=== PATIENT | female | born 1980 | race American Indian/Alaskan Native ===

== ENCOUNTER 2017-04-10 00:39 | Emergency (ER) | payer MEDICAID, OTHER ==
[2017-04-10 03:10] LABS: Alanine Aminotransferase 12 units/L (7-56); Albumin 4.7 g/dL (3.9-5); Albumin/Globulin Ratio 1.7 %; Alkaline Phosphatase 54 units/L (35-129); Anion Gap 21 mmol/L; BUN/Creatinine Ratio 15; Blood Urea Nitrogen 9 mg/dL (7-17); Calcium 9.1 mg/dL (8.4-10.2); Carbon Dioxide 22 mmol/L (22-30); Chloride 94.8 mmol/L (98-107); Glucose 97 mg/dL (65-100); Potassium 3.9 mmol/L (3.6-5.0); Sodium 134 mmol/L (137-145); Total Protein 7.5 g/dL (6.3-8.2)
[2017-04-10 03:14] LABS: Basophils % (Auto) 0.6 % (0.0-1.8); Hematocrit 40.4 % (30.3-42.9); Hemoglobin 13.5 gm/dl (10.1-14.3); Mean Corpuscular HGB Conc 34 % (30-34); Mean Corpuscular Hemoglobin 28 pg (28-32); Mean Corpuscular Volume 85 fl (79-97); Platelet Count 256 K/mm3 (140-440); Red Blood Count 4.77 M/mm3 (3.65-5.03); Red Cell Distribution Width 14.1 % (13.2-15.2); White Blood Count 6.6 K/mm3 (4.5-11.0)
[2017-04-10 03:43] LABS: Bilirubin,Urine NEG (Negative); Blood,Urine NEG (Negative); Ketones,Urine TR mg/dL (Negative); Leukocyte Esterase,Urine NEG (Negative); Mucus,Urine FEW /HPF; Nitrite,Urine NEG (Negative); Urobilinogen,Urine < 2.0 mg/dL (<2.0); WBC,Urine < 1.0 /HPF (0.0-6.0)
[2017-04-10] MEDS ORDERED: ZOFRAN ONE (07:42)
[2017-04-10] MEDS ORDERED: ZOFRAN IV ONE ×2 (07:49→08:56)
--- NOTE | 2017-04-10 08:50 | Emergency Department Report ---
HPI - General Chief Complaint: Abdominal Pain Time Seen by Provider: 04/10/17 08:38 - HPI HPI: Room 3 The patient is a 37-year-old female presenting with a chief complaint of abdominal pain nausea vomiting. Patient states at 18:00 last night she developed intractable nausea and vomiting. Patient states she developed pain at the umbilicus which is been constant in nature. Patient denies fever, diarrhea, dysuria, hematuria or vaginal discharge. Patient states her life cycle occurred 04/02/2017 was within normal limits. The patient currently gives her pain a score of 7/10 Location: Abdomen Duration: Constant since 18:00 last night Quality: Pain Severity: 7/10 Modifying factors: [see above] Context: [see above] Mode of transportation: Unknown ED Past Medical Hx - Past Medical History Previous Medical History?: No Additional medical history: denies - Surgical History Past Surgical History?: No Additional Surgical History: Bilateral tubal ligation - Family History Family history: no significant - Social History Smoking Status: Current Every Day Smoker (5-6 cigarettes daily) Substance Use Type: None (denies illicit drug use), Alcohol (occasional) - Medications Home Medications: Home Medications Medication Instructions Recorded Confirmed Last Taken Type Acetaminophen/Codeine 1 tab PO Q6H PRN #10 tab 06/24/14 Unknown Rx [Acetaminophen-Codeine #3 TAB] Cyclobenzaprine [Flexeril 10mg] 10 mg PO BID PRN #10 tablet 06/24/14 Unknown Rx Ibuprofen [Motrin 600 MG tab] 600 mg PO Q8H PRN #20 tablet 06/24/14 Unknown Rx Prednisone [Prednisone 5 mg (6-Day 5 mg PO .TAPER #1 tab.ds.pk 06/24/14 Unknown Rx Pack, 21 Tabs)] Azithromycin [Zithromax Z-REAL] 0 mg PO DAILY #6 tab 04/10/17 Unknown Rx traMADol [Ultram] 50 mg PO Q6HR PRN #14 tablet 04/10/17 Unknown Rx ED Review of Systems ROS: Stated complaint: BODY ACHES W N/V Other details as noted in HPI Comment: All other systems reviewed and negative Constitutional: denies: chills, fever Eyes: denies: eye pain, eye discharge, vision change ENT: denies: ear pain, throat pain Respiratory: denies: cough, shortness of breath, wheezing Cardiovascular: denies: chest pain, palpitations Endocrine: no symptoms reported Gastrointestinal: abdominal pain, nausea, vomiting. denies: diarrhea Genitourinary: denies: urgency, dysuria, discharge, abnormal menses Musculoskeletal: denies: back pain, joint swelling, arthralgia Skin: denies: rash, lesions Neurological: denies: headache, weakness, paresthesias Psychiatric: denies: anxiety, depression Hematological/Lymphatic: denies: easy bleeding, easy bruising Physical Exam - Physical Exam Vital Signs: Vital Signs 04/10/17 04/10/17 04/10/17 01:58 05:12 05:15 Temperature 98.3 F Pulse Rate 86 Respiratory 18 Rate Blood Pressure 157/106 128/85 127/100 Blood Pressure [Left] O2 Sat by Pulse 99 Oximetry 04/10/17 04/10/17 04/10/17 05:18 05:31 07:25 Temperature 98.5 F 98.5 F Pulse Rate 80 90 Respiratory 16 16 Rate Blood Pressure 147/96 Blood Pressure 128/85 145/106 [Left] O2 Sat by Pulse 99 Oximetry Physical Exam: GENERAL: The patient is well-developed well-nourished female lying on stretcher not appearing to be in acute distress. [] HEENT: Normocephalic. Atraumatic. Extraocular motions are intact. Patient has moist mucous membranes. NECK: Supple. Trachea midline CHEST/LUNGS: Clear to auscultation. There is no respiratory distress noted. HEART/CARDIOVASCULAR: Regular. There is no tachycardia. There is no gallop rub or murmur. ABDOMEN: Abdomen is soft, with a discomfort to palpation in the left lower quadrant, suprapubic region. There is no rebound or guarding. Patient has normal bowel sounds. There is no abdominal distention. SKIN: There is no rash. There is no edema. There is no diaphoresis. NEURO: The patient is awake, alert, and oriented. The patient is cooperative. The patient has normal speech MUSCULOSKELETAL: There is no CVA tenderness. There is no evidence of acute injury. ED Course Vital Signs 04/10/17 04/10/17 04/10/17 01:58 05:12 05:15 Temperature 98.3 F Pulse Rate 86 Respiratory 18 Rate Blood Pressure 157/106 128/85 127/100 Blood Pressure [Left] O2 Sat by Pulse 99 Oximetry 04/10/17 04/10/1704/10/17 05:18 05:31 07:25 Temperature 98.5 F 98.5 F Pulse Rate 80 90 Respiratory 16 16 Rate Blood Pressure 147/96 Blood Pressure 128/85 145/106 [Left] O2 Sat by Pulse 99 Oximetry - Reevaluation(s) Reevaluation #1: 04/10/17 11:22 CT results discussed with patient. Patient admits she is had a cough productive of green sputum for approximately 3 days. Will initiate azithromycin ED Medical Decision Making - Lab Data Result diagrams: 04/10/17 02:28 04/10/17 02:28 Laboratory Tests 04/10/17 04/10/17 04/10/17 02:28 02:28 02:28 WBC 6.6 RBC 4.77 Hgb 13.5 Hct 40.4 MCV 85 MCH 28 MCHC 34 RDW 14.1 Plt Count 256 Lymph % (Auto) 9.0 L [place] % (Auto) 3.5 Eos % (Auto) 0.0 Baso % (Auto) 0.6 Lymph # 0.6 L [place] # 0.2 Eos # 0.0 Baso # 0.0 Seg Neutrophils % 86.9 H Seg Neutrophils # 5.8 Sodium 134 L Potassium 3.9 Chloride 94.8 L Carbon Dioxide 22 Anion Gap 21 BUN 9 Creatinine 0.6 L Estimated GFR > 60 BUN/Creatinine Ratio 15 Glucose 97 Calcium 9.1 Total Bilirubin 0.30 AST 21 ALT 12 Alkaline Phosphatase 54 Total Protein 7.5 Albumin 4.7 Albumin/Globulin Ratio 1.7 Lipase 13 Urine Color Urine Turbidity Urine pH Ur Specific [place] Urine Protein Urine Glucose (UA) Urine Ketones Urine Blood Urine Nitrite Urine Bilirubin Urine Urobilinogen Ur Leukocyte Esterase Urine WBC (Auto) Urine RBC (Auto) U Epithel Cells (Auto) Urine Mucus Urine HCG, Qual 04/10/17 04/10/17 03:22 08:38 WBC RBC Hgb Hct MCV MCH MCHC RDW Plt Count Lymph % (Auto) [place] % (Auto) Eos % (Auto) Baso % (Auto) Lymph # [place] # Eos # Baso # Seg Neutrophils % Seg Neutrophils # Sodium Potassium Chloride Carbon Dioxide Anion Gap BUN Creatinine Estimated GFR BUN/Creatinine Ratio Glucose Calcium Total Bilirubin AST ALT Alkaline Phosphatase Total Protein Albumin Albumin/Globulin Ratio Lipase Urine Color Yellow Urine Turbidity Clear Urine pH 7.0 Ur Specific [place] 1.023 Urine Protein 30 mg/dl Urine Glucose (UA) Neg Urine Ketones Tr Urine Blood Neg Urine Nitrite Neg Urine Bilirubin Neg Urine Urobilinogen < 2.0 Ur Leukocyte Esterase Neg Urine WBC (Auto) < 1.0 Urine RBC (Auto) 4.0 U Epithel Cells (Auto) 5.0 Urine Mucus Few Urine HCG, Qual Negative - Radiology Data Radiology results: report reviewed (CT abdomen and pelvis), image reviewed (CT abdomen and pelvis) CT SCAN OF THE ABDOMEN AND PELVIS WITH CONTRAST: HISTORY: Periumbilical pain, left lower quadrant abdominal pain, intractable nausea and vomiting. TECHNIQUE: Helical CT in 1.25mm intervals following IV contrast. Sagittal and coronal reconstructions. FINDINGS: There is patchy airspace density within the medial left lower lobe which is partially imaged. Left lower lobe pneumonia cannot be excluded. The visualized right lung base is well aerated. Normal heart size. The liver is normal in size and is without focal defect. No gallstones or biliary dilatation are noted. The spleen is normal size and contour. 2.4 cm splenic hemangiomas noted. The pancreatic tissue is within normal limits. The kidneys are normal in size and position with no evidence of hydronephrosis or mass. The adrenal glands are normal. There is no intestinal obstruction or ascites. Normal appendix. The abdominal aorta is normal. 2.2 cm simple cyst in the right ovary is identified. The uterus and left adnexa are within normal limits. Bilateral Essure devices are noted. There is trace pelvic ascites. There are multiple fluid density cystic structures within the left side of the mesentery which filled the lesser sac. One of the larger cystic structures measure 2.7 x 6.3 cm in axial plane. This does not have the appearance of an abscess or mass. I suspect these may be lymphatic in origin. Correlation with previous CTs would be helpful if available. No bulky adenopathy, abscess or free air. No bony lesion is appreciated. IMPRESSION: Partially imaged airspace opacity in the left lower lobe. Correlate for left lung pneumonia. 2.2 cm right ovarian cyst. Trace pelvic ascites. 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 I suspect these may be congenital in nature. They do not have the typical appearance of a neoplastic process or inflammatory process. Transcribed By: TTR Dictated By: ANDRES CHAVIS JR, MD Electronically Authenticated By: ANDRES CHAVIS JR, MD Signed Date/Time: 04/10/17 1110 DD/ 1104 TD/TT: 04/10/17 1110 - Differential Diagnosis ectopic , diverticulitis, small bowel obstruction, gastritis Critical care attestation.: If time is entered above; I have spent that time in minutes in the direct care of this critically ill patient, excluding procedure time. ED Disposition Clinical Impression: Pneumonia, Abdominal pain Disposition: - TO HOME OR SELFCARE Is pt being admited?: No Does the pt Need Aspirin: No Condition: Stable Instructions: Abdominal Pain (ED), Bacterial Pneumonia (ED) Additional Instructions: Return to the emergency department immediately should you develop worsening symptoms, fever, inability to tolerate food or liquid or any other concerns. Prescriptions: Azithromycin [Zithromax Z-REAL] 0 mg PO DAILY #6 tab traMADol [Ultram] 50 mg PO Q6HR PRN #14 tablet PRN Reason: Pain Referrals: [facility] [Provider Group] - 3-5 Days Time of Disposition: 11:22
[2017-04-10] MEDS ORDERED: NACL 0.9% 1000 ML 1,000 ML IV ONE (08:56)
[2017-04-10] MEDS ORDERED: SUBLIMAZE IV ONE (08:56)
[2017-04-10] MEDS ORDERED: NACL ONE (09:51)
[2017-04-10 10:27] VITALS: BP 123/83
--- NOTE | 2017-04-10 11:14 | Cat Scan Report ---
CT SCAN OF THE ABDOMEN AND PELVIS WITH CONTRAST: HISTORY: Periumbilical pain, left lower quadrant abdominal pain, intractable nausea and vomiting. TECHNIQUE: Helical CT in 1.25mm intervals following IV contrast. Sagittal and coronal reconstructions. FINDINGS: There is patchy airspace density within the medial left lower lobe which is partially imaged. Left lower lobe pneumonia cannot be excluded. The visualized right lung base is well aerated. Normal heart size. The liver is normal in size and is without focal defect. No gallstones or biliary dilatation are noted. The spleen is normal size and contour. 2.4 cm splenic hemangiomas noted. The pancreatic tissue is within normal limits. The kidneys are normal in size and position with no evidence of hydronephrosis or mass. The adrenal glands are normal. There is no intestinal obstruction or ascites. Normal appendix. The abdominal aorta is normal. 2.2 cm simple cyst in the right ovary is identified. The uterus and left adnexa are within normal limits. Bilateral Essure devices are noted. There is trace pelvic ascites. There are multiple fluid density cystic structures within the left side of the mesentery which filled the lesser sac. One of the larger cystic structures measure 2.7 x 6.3 cm in axial plane. This does not have the appearance of an abscess or mass. I suspect these may be lymphatic in origin. Correlation with previous CTs would be helpful if available. No bulky adenopathy, abscess or free air. No bony lesion is appreciated. IMPRESSION: Partially imaged airspace opacity in the left lower lobe. Correlate for left lung pneumonia. 2.2 cm right ovarian cyst. Trace pelvic ascites. 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 I suspect these may be congenital in nature. They do not have the typical appearance of a neoplastic process or inflammatory process.
== END 2017-04-10 11:26 | disposition home or self-care (01) ==
LOC: ED 00:39
DX: J18.9 Pneumonia, unspecified organism (principal); R10.32 Left lower quadrant pain; F17.210 Nicotine dependence, cigarettes, uncomplicated; Z98.51 Tubal ligation status
CPT/HCPCS: 36415; 74177; 80053; 81001; 81025; 83690; 85025; 96361; 96374; 96375; 96376; 99284; J2405; J3010; J7030; Q9967

== ENCOUNTER 2017-08-19 13:36 | Emergency (ER) | payer OTHER ==
[2017-08-19 14:12] VITALS: BP 155/109
[2017-08-19] MEDS ORDERED: FLEXERIL PO ONE (16:53)
[2017-08-19] MEDS ORDERED: MOTRIN PO ONE (16:53)
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
[2017-08-19] MEDS ORDERED: TYLENOL #3 PO ONE (16:58)
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
== END 2017-08-19 18:18 | disposition home or self-care (01) ==
LOC: ED 13:36
DX: M79.1 Myalgia (principal); V89.2XXA Person injured in unspecified motor-vehicle accident, traffic, initial encounter; F17.200 Nicotine dependence, unspecified, uncomplicated; Z98.51 Tubal ligation status
CPT/HCPCS: 72040; 99283

== ENCOUNTER 2017-09-11 06:53 | Emergency (ER) | payer OTHER ==
[2017-09-11] MEDS ORDERED: ZOFRAN ODT PO ONE (07:19)
[2017-09-11 07:44] VITALS: BP 152/95
[2017-09-11 07:44] LABS: Basophils % (Auto) 0.3 % (0.0-1.8); Hematocrit 41.6 % (30.3-42.9); Hemoglobin 14.1 gm/dl (10.1-14.3); Lymphocytes # (Auto) 0.7 K/mm3 (1.2-5.4); Lymphocytes % (Auto) 9.8 % (13.4-35.0); Mean Corpuscular HGB Conc 34 % (30-34); Mean Corpuscular Hemoglobin 28 pg (28-32); Mean Corpuscular Volume 84 fl (79-97); Monocytes # (Auto) 0.2 K/mm3 (0.0-0.8); Monocytes % (Auto) 2.7 % (0.0-7.3); Platelet Count 292 K/mm3 (140-440); Red Blood Count 4.96 M/mm3 (3.65-5.03); Red Cell Distribution Width 14.1 % (13.2-15.2)
[2017-09-11 07:55] LABS: Alanine Aminotransferase 11 units/L (7-56); Albumin 4.8 g/dL (3.9-5); BUN/Creatinine Ratio 10; Blood Urea Nitrogen 7 mg/dL (7-17); Hemolysis Index 6
[2017-09-11] MEDS ORDERED: NACL 0.9% 1000 ML 1,000 ML ONE (08:00)
[2017-09-11] MEDS ORDERED: ZOFRAN ONE (08:00)
[2017-09-11] MEDS ORDERED: ZOFRAN IV ONE ×2 (08:09→14:51)
[2017-09-11] MEDS ORDERED: NACL 0.9% 1000 ML 1,000 ML IV ONE (08:09)
--- NOTE | 2017-09-11 10:23 | Ultrasound Report ---
TRANSABDOMINAL AND TRANSVAGINAL PELVIC ULTRASOUND: 09/11/17 06:53:00 CLINICAL: Pelvic pain. FINDINGS: Transabdominal and transvaginal pelvic ultrasound demonstrated a normal uterus measuring 8.3 x 4.3 x 5.8 cm. Normal uterine contour and echogenicity. No uterine fibroid or mass identified.The endometrium is normal and measures 6.5 AP thickness. A single ovary was identified at the uterine fundus and it measures 2.8 x 2.2 x 1.9 cm. The ovary contains a single follicle measuring 1.6 x 1.4 x 1.5 cm. A second ovary was not identified. No adnexal mass. No free fluid. Normal urinary bladder. IMPRESSION: 1. Normal uterus. 2. A single normal ovary identified at the uterine fundus. Without imaging of a second ovary, it is impossible determine whether this is a right ovary or a left ovary. 3. No explanation for pelvic pain.
[2017-09-11 10:29] LABS: Bilirubin,Urine NEG (Negative); Blood,Urine NEG (Negative); Color,Urine Yellow (Yellow); Mucus,Urine FEW /HPF; Protein,Urine <15 mg/dL mg/dL (Negative); Urobilinogen,Urine < 2.0 mg/dL (<2.0)
[2017-09-11] MEDS ORDERED: TORADOL IV ONE (14:51)
--- NOTE | 2017-09-11 14:55 | Emergency Department Report ---
Vomiting/Diarrhea - HPI Chief Complaint: Abdominal Pain Stated Complaint: FREQUENT VOMITING Time Seen by Provider: 09/11/17 14:24 Duration: 1 Day Severity: mild Nausea/Vomiting Severity: Mild Diarrhea Severity: Moderate Pain Location: Periumbilical Pain Severity: Mild Symptoms: Yes Able to Tolerate Fluids, Yes Recent Unusual Foods (estonian food), No Watery Diarrhea, No Bloody diarrhea, No Fever, No Recent Untreated Water, No Recent use of Antibiotics, No Family w/ Similar Symptoms, No Contacts w/ Similar Symptoms, No Rash, No Hematuria, No Recent URI Symptoms Other History: Patient is a 37-year-old female presents to ED complaining of periumbilical abdominal pain and nausea vomiting that started around 3 AM this morning. Patient states symptoms started from sleep. Patient states that yesterday afternoon she had some [place] food. Patient states that pain is localized to the umbilical region and nonradiating elsewhere his vaginal bleed, dysuria,, chills chest pain or shortness of breath ED Review of Systems ROS: Stated complaint: FREQUENT VOMITING Other details as noted in HPI Constitutional: denies: chills, fever Eyes: denies: eye pain, eye discharge, vision change ENT: denies: ear pain, throat pain Respiratory: denies: cough, shortness of breath, wheezing Cardiovascular: denies: chest pain, palpitations Endocrine: no symptoms reported Gastrointestinal: denies: abdominal pain, nausea, diarrhea Genitourinary: denies: urgency, dysuria, discharge Musculoskeletal: denies: back pain, joint swelling, arthralgia Skin: denies: rash, lesions Neurological: denies: headache, weakness, paresthesias Psychiatric: denies: anxiety, depression Hematological/Lymphatic: denies: easy bleeding, easy bruising ED Past Medical Hx - Past Medical History Previous Medical History?: No Additional medical history: denies - Surgical History Past Surgical History?: No Additional Surgical History: Bilateral tubal ligation - Social History Smoking Status: Current Every Day Smoker Substance Use Type: None - Medications Home Medications: Home Medications Medication Instructions Recorded Confirmed Last Taken Type Acetaminophen/Codeine 1 tab PO Q6H PRN #10 tab 06/24/14 Unknown Rx [Acetaminophen-Codeine #3 TAB] Cyclobenzaprine [Flexeril 10mg] 10 mg PO BID PRN #10 tablet 06/24/14 Unknown Rx Ibuprofen [Motrin 600 MG tab] 600 mg PO Q8H PRN #20 tablet 06/24/14 Unknown Rx Prednisone [Prednisone 5 mg (6-Day 5 mg PO .TAPER #1 tab.ds.pk 06/24/14 Unknown Rx Pack, 21 Tabs)] Azithromycin [Zithromax Z-REAL] 0 mg PO DAILY #6 tab 04/10/17 Unknown Rx traMADol [Ultram] 50 mg PO Q6HR PRN #14 tablet 04/10/17 Unknown Rx Cyclobenzaprine [Flexeril] 10 mg PO TID PRN #12 tablet 08/19/17 Unknown Rx Ibuprofen [Motrin] 800 mg PO Q8HR PRN #20 tablet 08/19/17 Unknown Rx Famotidine [Pepcid] 20 mg PO BID #30 tablet 09/11/17 Unknown Rx Ondansetron [Zofran Odt] 4 mg PO TID #20 tab.rapdis 09/11/17 Unknown Rx Vomiting Diarrhea Exam - Exam General: Vital signs noted. No distress. Alert and acting appropriately. HEENT: Yes Moist Mucous Membranes, No Pharyngeal Erythema, No Pharyngeal Exudates, No Rhinorrhea, No Conjuctival Injection, No Frontal Tenderness, No Maxillary Tenderness Neck: No Adenopathy, No Rigidity Lungs: Yes Clear Lung Sounds, Yes Good Air Exchange, No Wheezes, No Stridor, No Cough, No Nasal Flaring, No Retractions, No Use of Accessory Muscles Heart exam: Regular: Yes, Murmur: No, Tachycardia: No Abdomen: Tenderness: No, Peritoneal Signs: No, Distention: No, Hyperactive Bowel sounds: No Skin exam: Rash: No, Edema: No, Normal turgor: Yes Neurologic: Alert and oriented, no deficits. Musculoskeletal: Unremarkable. Exam: No organomegaly, no hernias palpated, no lesions, normal active bowel sounds ED Course Vital Signs 09/11/17 07:44 Temperature 98 F Pulse Rate 90 Respiratory 16 Rate Blood Pressure 152/95 [Left] O2 Sat by Pulse 199 H Oximetry ED Medical Decision Making - Lab Data Result diagrams: 09/11/17 07:23 09/11/17 07:23 - Medical Decision Making 37-year-old female presents with possible gastritis/gastroenteritis ED course: Patient received 1 L of fluids, Zofran, Toradol for pain, Ultrasound ordered. See REPORT above I DISCUSSED ULTRASOUND FINDINGS WITH THE PATIENT. I DISCUSSED THE PATIENT TO KEEP HYDRATED AND INCREASE FLUIDS. DISCUSSed following up with life teacher if symptoms does not resolve. Discussed to increase fluids 8/10 glasses per day. Discussed the patient will follow up with primary care physician. Critical care attestation.: If time is entered above; I have spent that time in minutes in the direct care of this critically ill patient, excluding procedure time. ED Disposition Clinical Impression: Gastroenteritis Disposition: DC-01 TO HOME OR SELFCARE Is pt being admited?: No Does the pt Need Aspirin: No Condition: Stable Instructions: Gastroenteritis (ED), Acute Nausea and Vomiting (ED), Food Poisoning (ED), Abdominal Pain (ED) Additional Instructions: Make sure to follow up with the primary care physician as discussed. Follow-up with life teacher as discussed. Take all your medications as you've been prescribed. If you have any worsening symptoms or develop new symptoms please return to ED immediately. Prescriptions: Famotidine [Pepcid] 20 mg PO BID #30 tablet Ondansetron [Zofran Odt] 4 mg PO TID #20 tab.abhay Referrals: [facility] [Provider Group] - 3-5 Days [facility] [Provider Group] - 3-5 Days Forms: Accompanied Note, Work/School Release Form(ED) Time of Disposition: 14:59
== END 2017-09-11 15:22 | disposition home or self-care (01) ==
LOC: ED 06:53
DX: K52.9 Noninfective gastroenteritis and colitis, unspecified (principal); F17.200 Nicotine dependence, unspecified, uncomplicated; Z98.51 Tubal ligation status
CPT/HCPCS: 36415; 76830; 76856; 80053; 81001; 84702; 85025; 96361; 96374; 96375; 96376; 99284; J1885; J2405; J7030; Q0162

== ENCOUNTER 2021-02-22 16:12 | Emergency (ER) | payer OTHER ==
[2021-02-22 16:26] VITALS: BP 154/100
== END 2021-02-22 19:04 | disposition left against medical advice (07) ==
LOC: ED 16:12
DX: F41.9 Anxiety disorder, unspecified (principal); Z53.21 Procedure and treatment not carried out due to patient leaving prior to being seen by health care provider

== ENCOUNTER 2021-10-29 21:37 | Emergency (ER) | payer MEDICAID, OTHER ==
--- NOTE | 2021-10-29 21:54 | Emergency Department Report ---
ED General Adult HPI - General Chief complaint: Abdominal Pain Stated complaint: ABD PAIN PUI?: No Time Seen by Provider: 10/29/21 21:52 Source: patient, EMS ( EMS documentation not available at time of chart dictation ), RN notes reviewed, old records reviewed Mode of arrival: Stretcher Limitations: No Limitations - History of Present Illness Initial comments: The patient was evaluated in the emergency department for symptoms described in the history of present illness. He/she was evaluated in the context of the global COVID-19 pandemic, which necessitated consideration that the patient might be at risk for infection with the virus that causes COVID-19. Institutional protocols and algorithms that pertain to the evaluation of patients at risk for COVID-19 are in a state of rapid change based on information released by regulatory bodies including the CDC and federal and state organizations. These policies and algorithms were followed during the patient's care in the emergency department. Please note that these policies, procedures and recommendations changed on a rapid basis. Primary CARE doctor: Bonilla rendon This patient is a 41-year-old female presenting to the ER today with a complaint of periumbilical abdominal pain, with associated nausea and vomiting. The symptoms started earlier today. They are constant. The pain increases with palpation and decreases with rest and position. Denies headache, neck pain, chest pain, dysuria. Denies vaginal discharge, and the possibility of STI. Reports distant history of tubal ligation. Reports she does not consume marijuana. No change with taking a hot bath or hot shower -: Gradual, hour(s) Location: abdomen Radiation: periumbillical Quality: aching Consistency: constant Improves with: rest Worsens with: movement (Movement and palpation) - Related Data Previous Rx's Medication Instructions Recorded Last Taken Type Ibuprofen [Motrin 600 MG tab] 600 mg PO Q8H PRN #20 tablet 06/24/14 Unknown Rx Prednisone [Prednisone 5 mg (6-Day 5 mg PO .TAPER #1 tab.ds.pk 06/24/14 Unknown Rx Pack, 21 Tabs)] Azithromycin [Zithromax Z-REAL] 0 mg PO DAILY #6 tab 04/10/17 Unknown Rx Ibuprofen [Motrin] 800 mg PO Q8HR PRN #20 tablet 08/19/17 Unknown Rx Famotidine [Pepcid] 20 mg PO BID #30 tablet 09/11/17 Unknown Rx Ondansetron [Zofran Odt] 4 mg PO TID #20 tab.rapdis 09/11/17 Unknown Rx Acetaminophen [Non-Aspirin Extra 500 mg PO Q6HR PRN #30 tablet 10/30/21 Unknown Rx Strength] Ibuprofen [Motrin] 400 mg PO Q8H PRN #30 tablet 10/30/21 Unknown Rx Ondansetron [Zofran Odt] 4 mg PO Q8HR PRN #20 tab.rapdis 10/30/21 Unknown Rx Allergies Allergy/AdvReac Type Severity Reaction Status Date / Time No Known Allergies Allergy Verified 06/24/14 08:15 ED Review of Systems ROS: Stated complaint: ABD PAIN Other details as noted in HPI Constitutional: denies: fever Eyes: denies: eye discharge ENT: denies: epistaxis Respiratory: denies: cough Cardiovascular: denies: chest pain Gastrointestinal: abdominal pain, nausea, vomiting. denies: diarrhea Genitourinary: denies: dysuria, discharge Musculoskeletal: denies: back pain Neurological: weakness Hematological/Lymphatic: denies: easy bleeding ED Past Medical Hx - Past Medical History Previous Medical History?: Yes Hx Hypertension: Yes Additional medical history: denies - Surgical History Past Surgical History?: Yes Additional Surgical History: Bilateral tubal ligation - Social History Smoking Status: Current Every Day Smoker Substance Use Type: None - Medications Home Medications: Home Medications Medication Instructions Recorded Confirmed Last Taken Type Ibuprofen [Motrin 600 MG tab] 600 mg PO Q8H PRN #20 tablet 06/24/14 Unknown Rx Prednisone [Prednisone 5 mg (6-Day 5 mg PO .TAPER #1 tab.ds.pk 06/24/14 Unknown Rx Pack, 21 Tabs)] Azithromycin [Zithromax Z-REAL] 0 mg PO DAILY #6 tab 04/10/17 Unknown Rx Ibuprofen [Motrin] 800 mg PO Q8HR PRN #20 tablet 08/19/17 Unknown Rx Famotidine [Pepcid] 20 mg PO BID #30 tablet 09/11/17 Unknown Rx Ondansetron [Zofran Odt] 4 mg PO TID #20 tab.rapdis 09/11/17 Unknown Rx Acetaminophen [Non-Aspirin Extra 500 mg PO Q6HR PRN #30 tablet 10/30/21 Unknown Rx Strength] Ibuprofen [Motrin] 400 mg PO Q8H PRN #30 tablet 10/30/21 Unknown Rx Ondansetron [Zofran Odt] 4 mg PO Q8HR PRN #20 tab.aniyahdis 10/30/21 Unknown Rx ED Physical Exam - General Limitations: No Limitations General appearance: alert, anxious, obese - Head Head exam: Present: atraumatic, normocephalic - Eye Eye exam: Present: normal appearance, EOMI. Absent: nystagmus - ENT ENT exam: Present: normal exam, normal orophraynx, mucous membranes moist, normal external ear exam - Neck Neck exam: Present: normal inspection, full ROM. Absent: tenderness, meningismus - Respiratory Respiratory exam: Present: normal lung sounds bilaterally. Absent: respiratory distress, wheezes, rales, rhonchi, stridor, decreased breath sounds - Cardiovascular Cardiovascular Exam: Present: regular rate, normal rhythm, normal heart sounds. Absent: bradycardia, tachycardia, irregular rhythm, systolic murmur, diastolic murmur, rubs, gallop - GI/Abdominal GI/Abdominal exam: Present: soft, tenderness, other (Periumbilical and bilateral lower quadrant abdominal tenderness.). Absent: distended, guarding, rebound, rigid, pulsatile mass - External exam: Present: normal external exam, other (Patient provides verbal consent for gynecologic examination). Absent: erythema, swelling, lesions, lacerations, ecchymosis, bleeding Speculum exam: Present: normal speculum exam, erythema, other (Chaperoned by nurse Kaye Barragan). Absent: vaginal discharge, cervical discharge, vaginal blee ding, foreign body, tissue, laceration Bi-manual exam: Present: normal bi-manual exam. Absent: cervical motion tendernes, adnexal tenderness, adnexal mass, uterine enlargement, uterine tenderness - Extremities Exam Extremities exam: Present: normal inspection, full ROM, other (2+ pulses noted in the bilateral upper and lower extremities. There is no palpable cord. negative Homans sign. Muscular compartments are soft. The pelvis is stable.). Absent: pedal edema, calf tenderness - Back Exam Back exam: Present: normal inspection. Absent: tenderness, CVA tenderness (R), CVA tenderness (L), paraspinal tenderness, vertebral tenderness - Neurological Exam Neurological exam: Present: alert, other (No facial droop. Tongue midline. Extraocular movements intact bilaterally. Facial sensation intact to light touch in V1, V2, V3 distribution bilaterally. 5 and a 5 strength in 4 extremities. Sensation intact to light touch in 4 extremities.). Absent: motor sensory deficit - Psychiatric Psychiatric exam: Present: anxious - Skin Skin exam: Present: warm, dry, intact, normal color. Absent: rash ED Course Vital Signs 10/29/21 10/29/21 10/29/21 21:44 21:45 22:01 Temperature Pulse Rate 96 H 86 96 H Respiratory 16 18 17 Rate Blood Pressure 169/117 163/118 O2 Sat by Pulse 99 98 98 Oximetry 10/29/21 10/29/21 10/29/21 22:06 22:15 22:17 Temperature 98.6 F Pulse Rate 107 H 93 H Respiratory 30 H 22 Rate Blood Pressure 163/118 163/118 O2 Sat by Pulse 99 98 Oximetry 10/29/21 10/29/21 10/29/21 23:05 23:13 23:15 Temperature Pulse Rate 82 71 Respiratory 25 H 20 Rate Blood Pressure 163/118 160/106 160/106 O2 Sat by Pulse 100 98 98 Oximetry 10/29/21 10/29/21 10/30/21 23:31 23:45 00:09 Temperature Pulse Rate 87 74 86 Respiratory 21 12 23 Rate Blood Pressure 171/103 171/103 169/100 O2 Sat by Pulse 94 98 99 Oximetry 10/30/21 10/30/21 10/30/21 00:15 00:30 00:45 Temperature Pulse Rate 75 88 Respiratory 14 27 H Rate Blood Pressure 169/100 169/100 169/100 O2 Sat by Pulse 96 98 96 Oximetry 10/30/21 10/30/21 10/30/21 01:01 01:15 01:31 Temperature Pulse Rate Respiratory Rate Blood Pressure 148/94 142/96 149/92 O2 Sat by Pulse 97 99 97 Oximetry 10/30/21 01:45 Temperature Pulse Rate Respiratory Rate Blood Pressure 149/92 O2 Sat by Pulse 97 Oximetry - Reevaluation(s) Reevaluation #1: 10/29/21 23:19 Differential diagnosis, including but not limited to: Colitis, appendicitis, diverticulitis, renal colic, UTI, ovarian cyst, pelvic inflammatory disease Assessment and plan: 41-year-old female with lower abdominal pain, with nausea and vomiting. She is not . Check appropriate laboratory studies, treat her symptoms, perform pelvic examination, obtain CT scan of the abdomen pelvis, and pelvic ultrasound. Discussed this plan of care with the patient. She is agreeable to the plan of care. Reassess. We will treat the patient's pain and nausea, prior to performing gynecologic examination. 10/30/21 00:28 Patient is feeling improved. Laboratory studies are essentially unremarkable. Ultrasound essentially unremarkable. Pelvic examination is benign. She has no adnexal tenderness. CT scan abdomen pelvis is pending. Have requested urinalysis. Currently rating her pain as a 6 out of 10. Reevaluation #2: 10/30/21 02:[address] scan abdomen pelvis negative for significant or emergent findings. Chronic findings are noted. Wet prep negative. UA not consistent with urinary tract infection. We contacted the [facility] network, who informed us that this patient is no longer under [facility] coverage. I discussed all findings with the patient. She articulates understanding. Discharged with appropriate as needed medications. Return precautions are reviewed. All questions answered. ED Medical Decision Making - Lab Data Result diagrams: 10/29/21 22:59 10/29/21 22:59 Vital Signs 10/29/21 10/29/21 10/29/21 21:44 21:45 22:01 Temperature Pulse Rate 96 H 86 96 H Respiratory 16 18 17 Rate Blood Pressure 169/117 163/118 O2 Sat by Pulse 99 98 98 Oximetry 10/29/21 10/29/21 10/29/21 22:06 22:15 23:05 Temperature 98.6 F Pulse Rate 107 H Respiratory 30 H Rate Blood Pressure 163/118 163/118 O2 Sat by Pulse 99 100 Oximetry Lab Results 10/29/21 10/29/21 10/29/21 Range/Units 22:00 22:00 22:59 WBC 5.8 (4.5-11.0) K/mm3 RBC 5.16 H (3.65-5.03) M/mm3 Hgb 14.5 H (10.1-14.3) gm/dl Hct 44.9 H (30.3-42.9) % MCV 87 (79-97) fl MCH 28 (28-32) pg MCHC 32 (30-34) % RDW 14.4 (13.2-15.2) % Plt Count 275 (140-440) K/mm3 PT (12.2-14.9) Sec. INR (0.87-1.13) Sodium (137-145) mmol/L Potassium (3.6-5.0) mmol/L Chloride (98-107) mmol/L Carbon Dioxide (22-30) mmol/L Anion Gap mmol/L BUN (7-17) mg/dL Creatinine (0.6-1.2) mg/dL Estimated GFR ml/min BUN/Creatinine Ratio % Glucose (65-100) mg/dL Calcium (8.4-10.2) mg/dL Total Bilirubin (0.1-1.2) mg/dL AST (5-40) units/L ALT (7-56) units/L Alkaline Phosphatase (35-129) units/L Total Protein (6.3-8.2) g/dL Albumin (3.9-5) g/dL Albumin/Globulin Ratio % Lipase (13-60) units/L HCG, Quant < 2 (0-4) mIU/mL Plasma/Serum Alcohol < 0.01 (0-0.07) % 10/29/21 10/29/21 Range/Units 22:59 22:59 WBC (4.5-11.0) K/mm3 RBC (3.65-5.03) M/mm3 Hgb (10.1-14.3) gm/dl Hct (30.3-42.9) % MCV (79-97) fl MCH (28-32) pg MCHC (30-34) % RDW (13.2-15.2) % Plt Count (140-440) K/mm3 PT 11.9 L (12.2-14.9) Sec. INR 0.80 L (0.87-1.13) Sodium 138 (137-145) mmol/L Potassium 4.0 (3.6-5.0) mmol/L Chloride 99.5 (98-107) mmol/L Carbon Dioxide 23 (22-30) mmol/L Anion Gap 20 mmol/L BUN 5 L (7-17) mg/dL Creatinine 0.9 (0.6-1.2) mg/dL Estimated GFR > 60 ml/min BUN/Creatinine Ratio 6 % Glucose 86 (65-100) mg/dL Calcium 9.6 (8.4-10.2) mg/dL Total Bilirubin 0.30 (0.1-1.2) mg/dL AST 23 (5-40) units/L ALT 13 (7-56) units/L Alkaline Phosphatase 71 (35-129) units/L Total Protein 7.9 (6.3-8.2) g/dL Albumin 4.8 (3.9-5) g/dL Albumin/Globulin Ratio 1.5 % Lipase 14 (13-60) units/L HCG, Quant (0-4) mIU/mL Plasma/Serum Alcohol (0-0.07) % - EKG Data -: EKG Interpreted by Ma EKG shows normal: sinus rhythm Rate: normal - EKG Data 10/29/21 23:18 The EKG is interpreted at 23: 06 Sinus rhythm, 68 bpm. Normal axis, normal P wave axis, normal intervals. Not a STEMI. Early repolarization. - Radiology Data Radiology results: pending, report reviewed, image reviewed ULTRASOUND PELVIS INDICATION: acute lower abd pain n/v. TECHNIQUE: Tr ansabdominal. Duplex Color Doppler used: Yes. COMPARISON: None available FINDINGS: Uterus: Present. Size: 7.9 x 3.2 x 5.6 cm. Endometrial complex: Normal measuring 3 mm. Mass lesions: None. Additional findings: None. Right Ovary -- Normal. Blood flow: Normal. Cyst or mass: None. Left Ovary--not visualized secondary to bowel gas. Urinary Bladder: Normal. Free Fluid: None. Additional Findings: None. IMPRESSION: 1. No acute sonographic abnormality of the pelvis. 2. Left ovary not visualized Signer Name: Benito Santacruz MD Signed: 10/29/2021 10:16 PM Workstation Name: [id number] CT ABDOMEN AND PELVIS WITH CONTRAST INDICATION: acute lower abd pain n/v. TECHNIQUE: Axial CT images were obtained through the abdomen and pelvis after IV contrast. All CT scans at this location are performed using CT dose reduction for ALARA by means of automated exposure control. COMPARISON: CT abdomen pelvis 04/10/2017 FINDINGS: LOWER CHEST: Left lower lobe 3.5 cm patchy parenchymal is stable and unchanged of doubtful clinical significance LIVER: No significant abnormality. GALLBLADDER: No significant abnormality. BILE DUCTS: No significant abnormality. PANCREAS: No significant abnormality. SPLEEN: Stable 2.5 cm splenic hemangioma. A DRENALS: No significant abnormality. RIGHT KIDNEY and URETER: No significant abnormality. LEFT KIDNEY and URETER: No significant abnormality. STOMACH and SMALL BOWEL: Multilobulated cystic mesenteric structures left mid upper abdomen, unchanged. COLON: No significant abnormality. APPENDIX: Normal. PERITONEUM: Trace amount of right-sided free pelvic fluid No free air. No fluid collection. LYMPH NODES: No significant adenopathy. AORTA and ARTERIES: No significant abnormality. IVC and VEINS: No significant abnormality. URINARY BLADDER: No significant abnormality. REPRODUCTIVE ORGANS: No significant abnormality. Bilateral tubal ligation clips ADDITIONAL FINDINGS: None. SKELETAL SYSTEM: No significant abnormality. IMPRESSION: 1. 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 2. Left lower lobe parenchymal density is of doubtful clinical significance given its 5 year stability. Signer Name: Benito Santacruz MD Signed: 10/29/2021 11:30 PM Workstation Name: [id number] Critical care attestation.: If time is entered above; I have spent that time in minutes in the direct care of this critically ill patient, excluding procedure time. ED Disposition Clinical Impression: Acute bilateral lower abdominal pain Disposition: 01 HOME / SELF CARE / HOMELESS Is pt being admited?: No Does the pt Need Aspirin: No Condition: Good Instructions: Abdominal Pain (ED), Abdominal Pain, Adult, [id number] Additional Instructions: Cultures were sent today, and results will be available within the next week. Please have a primary care doctor contact medical records department, to follow- up on culture results, and nonemergent incidental findings. CT scan abdomen pelvis today showed no acute or emergent findings, but demonstrated nonspecific nonemergent incidental abnormal findings which should be followed up by your outpatient primary care doctor. We recommend follow-up with a primary care doctor within the next week. Do not take metformin medication for the next 2 days, if patient takes this medication. Please take the prescribed pain medications and nausea medications as needed and directed. Avoid consumption of alcohol, tobacco, smoke products, heavy and spicy foods. We do recommend follow-up with a physician within the next 5 to 7 days Please return to the emergency room right away with new pain, worsened pain, migration of pain, projectile vomiting, change in mental status, confusion, inability tolerate liquid feeds, new, worsened or different symptoms not present on the initial emergency room evaluation Referrals: [facility] [Provider Group] - 3-5 Days Forms: Work/School Release Form(ED)
[2021-10-29] MEDS ORDERED: ONDANSETRON 4 MG/2 ML INJ IV ONE (22:08)
[2021-10-29] MEDS ORDERED: HYDROmorphone 0.5 MG/0.5 ML INJ IV ONE (22:08)
[2021-10-29] MEDS ORDERED: SODIUM CHLORIDE 0.9% 1000 ML 1,000 ML IV ONE (22:08)
--- NOTE | 2021-10-29 23:21 | Ultrasound Report ---
ULTRASOUND PELVIS INDICATION: acute lower abd pain n/v. TECHNIQUE: Transabdominal. Duplex Color Doppler used: Yes. COMPARISON: None available FINDINGS: Uterus: Present. Size: 7.9 x 3.2 x 5.6 cm. Endometrial complex: Normal measuring 3 mm. Mass lesions: None. Additional findings: None. Right Ovary -- Normal. Blood flow: Normal. Cyst or mass: None. Left Ovary--not visualized secondary to bowel gas. Urinary Bladder: Normal. Free Fluid: None. Additional Findings: None. IMPRESSION: 1. No acute sonographic abnormality of the pelvis. 2. Left ovary not visualized Signer Name: Benito Santarcuz MD Signed: 10/29/2021 11:16 PM Workstation Name: [id number]
[2021-10-29 23:36] LABS: INR 0.8 (0.87-1.13)
[2021-10-29 23:40] LABS: Alanine Aminotransferase 13 units/L (7-56); Albumin 4.8 g/dL (3.9-5); BUN/Creatinine Ratio 6; Blood Urea Nitrogen 5 mg/dL (7-17); Calcium 9.6 mg/dL (8.4-10.2); Hemolysis Index 10
[2021-10-29 23:45] LABS: Hematocrit 44.9 % (30.3-42.9); Hemoglobin 14.5 gm/dl (10.1-14.3); Mean Corpuscular HGB Conc 32 % (30-34); Mean Corpuscular Volume 87 fl (79-97); Platelet Count 275 K/mm3 (140-440); Red Blood Count 5.16 M/mm3 (3.65-5.03); Red Cell Distribution Width 14.4 % (13.2-15.2)
[2021-10-30] MEDS ORDERED: MORPHINE 4 MG/1 ML INJ IV ONE (00:28)
--- NOTE | 2021-10-30 00:35 | Cat Scan Report ---
CT ABDOMEN AND PELVIS WITH CONTRAST INDICATION: acute lower abd pain n/v. TECHNIQUE: Axial CT images were obtained through the abdomen and pelvis after IV contrast. All CT scans at this location are performed using CT dose reduction for ALARA by means of automated exposure control. COMPARISON: CT abdomen pelvis 04/10/2017 FINDINGS: LOWER CHEST: Left lower lobe 3.5 cm patchy parenchymal is stable and unchanged of doubtful clinical s ignificance LIVER: No significant abnormality. GALLBLADDER: No significant abnormality. BILE DUCTS: No significant abnormality. PANCREAS: No significant abnormality. SPLEEN: Stable 2.5 cm splenic hemangioma. ADRENALS: No significant abnormality. RIGHT KIDNEY and URETER: No significant abnormality. LEFT KIDNEY and URETER: No significant abnormality. STOMACH and SMALL BOWEL: Multilobulated cystic mesenteric structures left mid upper abdomen, unchange d. COLON: No significant abnormality. APPENDIX: Normal. PERITONEUM: Trace amount of right-sided free pelvic fluid No free air. No fluid collection. LYMPH NODES: No significant adenopathy. AORTA and ARTERIES: No significant abnormality. IVC and VEINS: No significant abnormality. URINARY BLADDER: No significant abnormality. REPRODUCTIVE ORGANS: No significant abnormality. Bilateral tubal ligation clips ADDITIONAL FINDINGS: None. SKELETAL SYSTEM: No significant abnormality. IMPRESSION: 1. 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 2. Left lower lobe parenchymal density is of doubtful clinical significance given its 5 year stabilit y. Signer Name: Benito Santacruz MD Signed: 10/30/2021 12:30 AM Workstation Name: [id number]
[2021-10-30] MEDS ORDERED: KETOROLAC 30 MG/1 ML INJ IV ONE (00:44)
[2021-10-30 00:52] LABS: RBC,Urine < 1.0 /HPF (0.0-6.0)
[2021-10-30 00:58] LABS: Bilirubin,Urine NEG (Negative); Color,Urine Colorless (Yellow)
[2021-10-30 00:59] LABS: Blood,Urine Negative (Negative); Protein,Urine <15 mg/dL mg/dL (Negative); Urobilinogen,Urine < 2.0 mg/dL (<2.0); WBC,Urine < 1.0 /HPF (0.0-6.0)
[2021-10-30 02:50] VITALS: BP 134/85
--- NOTE | 2021-10-30 12:14 | Electrocardiograph Report ---
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
== END 2021-10-30 02:55 | disposition home or self-care (01) ==
LOC: ED 21:37
DX: R10.31 Right lower quadrant pain (principal); R10.32 Left lower quadrant pain; I10 Essential (primary) hypertension; Z98.890 Other specified postprocedural states; F17.290 Nicotine dependence, other tobacco product, uncomplicated
CPT/HCPCS: 36415; 74177; 76830; 80053; 81001; 83690; 84702; 85027; 85610; 87210; 93005; 93975; 96361; 96374; 96375; 99285; J1885; J2270; J2405; J7030; Q9967; 80320; G0480

== ENCOUNTER 2021-11-01 21:28 | Emergency (ER) | payer MEDICAID ==
[2021-11-01] MEDS ORDERED: SODIUM CHLORIDE 0.9% 1000 ML 1,000 ML IV ONE (22:37)
[2021-11-01] MEDS ORDERED: MORPHINE 4 MG/1 ML INJ IV ONE (22:37)
[2021-11-01] MEDS ORDERED: PANTOPRAZOLE 40 MG INJ IV ONE (22:37)
[2021-11-01] MEDS ORDERED: ALUM-MAG HYDROXIDE-SIMETHICONE 200-200-20MG/5ML ORAL LIQD 30 ML PO ONE (22:37)
[2021-11-01] MEDS ORDERED: LIDOCAINE VISCOUS 2% 15 ML ORAL LIQD PO ONE (22:37)
[2021-11-01] MEDS ORDERED: ONDANSETRON 4 MG/2 ML INJ IV ONE (22:37)
--- NOTE | 2021-11-01 22:41 | Emergency Department Report ---
ED Abdominal Pain HPI - General Chief Complaint: Abdominal Pain Stated Complaint: ABD PAIN Time Seen by Provider: 11/01/21 22:35 Source: patient Mode of arrival: Stretcher Limitations: No Limitations - History of Present Illness Initial Comments: Patient is 41 years old female with no significant past medical history. Patient presented to the ER complaining of epigastric abdominal pain for the last 2 to 3 days. Patient described her pain as sharp and burning sensation. Pain associated with nausea and vomiting. Patient denied any fever or chills. She denied any diarrhea. No chest pain or shortness of breath. Patient stated that she has been drinking alcohol recently. MD Complaint: abdominal pain -: days(s) Location: epigastric Radiation: none Migration to: no migration Associated Symptoms: nausea, vomiting - Related Data Previous Rx's Medication Instructions Recorded Last Taken Type Ibuprofen [Motrin 600 MG tab] 600 mg PO Q8H PRN #20 tablet 06/24/14 Unknown Rx Prednisone [Prednisone 5 mg (6-Day 5 mg PO .TAPER #1 tab.ds.pk 06/24/14 Unknown Rx Pack, 21 Tabs)] Azithromycin [Zithromax Z-REAL] 0 mg PO DAILY #6 tab 04/10/17 Unknown Rx Ibuprofen [Motrin] 800 mg PO Q8HR PRN #20 tablet 08/19/17 Unknown Rx Famotidine [Pepcid] 20 mg PO BID #30 tablet 09/11/17 Unknown Rx Ondansetron [Zofran Odt] 4 mg PO TID #20 tab.rapdis 09/11/17 Unknown Rx Acetaminophen [Non-Aspirin Extra 500 mg PO Q6HR PRN #30 tablet 10/30/21 Unknown Rx Strength] Ibuprofen [Motrin] 400 mg PO Q8H PRN #30 tablet 10/30/21 Unknown Rx Ondansetron [Zofran Odt] 4 mg PO Q8HR PRN #20 tab.rapdis 10/30/21 Unknown Rx Allergies Allergy/AdvReac Type Severity Reaction Status Date / Time No Known Allergies Allergy Verified 06/24/14 08:15 ED Review of Systems ROS: Stated complaint: ABD PAIN Other details as noted in HPI Comment: All other systems reviewed and negative Respiratory: denies: cough, orthopnea, shortness of breath, SOB with exertion, SOB at rest Cardiovascular: denies: chest pain, palpitations Gastrointestinal: abdominal pain, nausea, vomiting. denies: diarrhea, constipation, hematemesis, melena, hematochezia Musculoskeletal: denies: back pain Neurological: denies: headache, weakness, numbness, paresthesias, confusion ED Past Medical Hx - Past Medical History Previous Medical History?: Yes Hx Hypertension: Yes Additional medical history: denies - Surgical History Past Surgical History?: Yes Additional Surgical History: Bilateral tubal ligation - Social History Smoking Status: Current Every Day Smoker Substance Use Type: None - Medications Home Medications: Home Medications Medication Instructions Recorded Confirmed Last Taken Type Ibuprofen [Motrin 600 MG tab] 600 mg PO Q8H PRN #20 tablet 06/24/14 Unknown Rx Prednisone [Prednisone 5 mg (6-Day 5 mg PO .TAPER #1 tab.ds.pk 06/24/14 Unknown Rx Pack, 21 Tabs)] Azithromycin [Zithromax Z-REAL] 0 mg PO DAILY #6 tab 04/10/17 Unknown Rx Ibuprofen [Motrin] 800 mg PO Q8HR PRN #20 tablet 08/19/17 Unknown Rx Famotidine [Pepcid] 20 mg PO BID #30 tablet 09/11/17 Unknown Rx Ondansetron [Zofran Odt] 4 mg PO TID #20 tab.rapdis 09/11/17 Unknown Rx Acetaminophen [Non-Aspirin Extra 500 mg PO Q6HR PRN #30 tablet 10/30/21 Unknown Rx Strength] Ibuprofen [Motrin] 400 mg PO Q8H PRN #30 tablet 10/30/21 Unknown Rx Ondansetron [Zofran Odt] 4 mg PO Q8HR PRN #20 tab.rapdis 10/30/21 Unknown Rx ED Physical Exam - General Limitations: No Limitations General appearance: alert, in no apparent distress - Head Head exam: Present: atraumatic, normocephalic, normal inspection - Eye Eye exam: Present: normal appearance - ENT ENT exam: Present: mucous membranes dry - Neck Neck exam: Present: normal inspection, full ROM. Absent: tenderness, meningismus - Respiratory Respiratory exam: Present: normal lung sounds bilaterally - Cardiovascular Cardiovascular Exam: Present: regular rate, normal rhythm, normal heart sounds - GI/Abdominal GI/Abdominal exam: Present: soft, normal bowel sounds. Absent: distended, tenderness, guarding, rebound, rigid, organomegaly, mass, bruit, pulsatile mass, hernia - Extremities Exam Extremities exam: Present: normal inspection, full ROM, normal capillary refill. Absent: tenderness, pedal edema, joint swelling, calf tenderness - Back Exam Back exam: Present: normal inspection, full ROM. Absent: CVA tenderness (R), CVA tenderness (L) - Neurological Exam Neurological exam: Present: alert, oriented X3, CN II-XII intact, normal gait, reflexes normal. Absent: motor sensory deficit - Psychiatric Psychiatric exam: Present: normal mood - Skin Skin exam: Present: warm, intact, normal color ED Course Vital Signs 11/01/21 22:26 Temperature 98 F Pulse Rate 100 H Respiratory 100 H Rate Blood Pressure 170/100 O2 Sat by Pulse 100 Oximetry ED Medical Decision Making - Lab Data Result diagrams: 11/01/21 22:37 11/01/21 22:37 - Radiology Data Radiology results: report reviewed - Medical Decision Making Patient is 41 years old female with no significant past medical history. Patient presented to the ER complaining of epigastric abdominal pain for the last 2 to 3 days. Patient described her pain as sharp and burning sensation. Pain associated with nausea and vomiting. Patient denied any fever or chills. She denied any diarrhea. No chest pain or shortness of breath. Patient stated that she has been drinking alcohol recently. Patient received morphine, Zofran, Reglan and Protonix. Patient also received normal saline. Labs reviewed and is unremarkable. Patient was seen here recently and had a CT abdomen and pelvis with no acute finding. I believe patient symptoms most likely related to alcoholic gastritis. Patient given prescription for pantoprazole 40 mg and sucralfate. Advised patient to follow- up with [facility] in the next 2 to 3 days and to return to the ER if she develop any new symptoms. Critical care attestation.: If time is entered above; I have spent that time in minutes in the direct care of this critically ill patient, excluding procedure time. ED Disposition Clinical Impression: Acute abdominal pain, Alcoholic gastritis Disposition: 01 HOME / SELF CARE / HOMELESS Is pt being admited?: No Condition: Stable Instructions: Abdominal Pain (ED), Gastritis, Adult, [id number], Abdominal Pain, Adult Referrals: HENRY KELLEY MD [Primary Care Provider] - 3-5 Days [facility] [Provider Group] - 3-5 Days
[2021-11-01 23:01] LABS: Basophils % (Auto) 0.9 % (0.0-1.8); Eosinophils % (Auto) 0.1 % (0.0-4.3); Hematocrit 38.6 % (30.3-42.9); Lymphocytes # (Auto) 0.7 K/mm3 (1.2-5.4); Lymphocytes % (Auto) 17.9 % (13.4-35.0); Mean Corpuscular HGB Conc 34 % (30-34); Mean Corpuscular Volume 87 fl (79-97); Monocytes # (Auto) 0.3 K/mm3 (0.0-0.8); Monocytes % (Auto) 7.4 % (0.0-7.3); Platelet Count 243 K/mm3 (140-440); Red Blood Count 4.43 M/mm3 (3.65-5.03); Red Cell Distribution Width 14.3 % (13.2-15.2)
[2021-11-01 23:13] LABS: Alanine Aminotransferase 16 units/L (7-56); Albumin 4.2 g/dL (3.9-5); BUN/Creatinine Ratio 11; Blood Urea Nitrogen 9 mg/dL (7-17); Hemolysis Index 5
[2021-11-01 23:21] LABS: Bilirubin,Urine NEG (Negative); Blood,Urine NEG (Negative); Color,Urine Straw (Yellow); Protein,Urine <15 mg/dL mg/dL (Negative); Urobilinogen,Urine < 2.0 mg/dL (<2.0)
--- NOTE | 2021-11-02 00:06 | XRay Report ---
XR abd series w cxr 1V INDICATION / CLINICAL INFORMATION: abdominal pain COMPARISON: None available. TECHNIQUE: Flat and erect images of the abdomen with additional AP view of the chest. FINDINGS: The chest demonstrates no significant abnormality. No specific abnormality of the bowel gas pattern. No free air. Fallopian tube occlusive devices prese nt bilaterally. IMPRESSION: 1. Nonobstructive bowel gas pattern. No acute findings within the chest. Signer Name: Eddie Giron II, MD Signed: 11/02/2021 12:02 AM Workstation Name: [id number]
[2021-11-02] MEDS ORDERED: METOCLOPRAMIDE 10 MG/2 ML INJ IV ONE (00:16)
[2021-11-02 03:15] VITALS: BP 116/72
== END 2021-11-02 03:17 | disposition home or self-care (01) ==
LOC: ED 21:28
DX: K29.20 Alcoholic gastritis without bleeding (principal); R10.13 Epigastric pain; I10 Essential (primary) hypertension; F17.200 Nicotine dependence, unspecified, uncomplicated; Z79.899 Other long term (current) drug therapy
CPT/HCPCS: 36415; 74022; 80053; 81001; 83690; 84703; 85025; 96361; 96374; 96375; 99284; C9113; J2270; J2405; J2765; J7030